=== PATIENT | female | born 2000 | race Caucasian/White ===

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

== ENCOUNTER 2018-01-25 14:22 | Emergency (ER) | payer OTHER ==
[~2018-01-25 14:22] MED LIST changes: +HEMATOGEN SOFT1 EACH PO; +IBUPROFEN800 MG PO
== END 2018-01-25 15:31 | disposition left against medical advice (07) ==
LOC: EME 14:22
DX: Z53.21 Procedure and treatment not carried out due to patient leaving prior to being seen by health care provider (principal)

== ENCOUNTER 2018-04-06 17:43 | Emergency (ER) | payer OTHER ==
[~2018-04-06] VITALS: Ht 149.9 cm; Wt 45.6 kg
[2018-04-06 19:46] VITALS: BP 107/57
== END 2018-04-06 19:46 | disposition home or self-care (01) ==
LOC: EME 17:43
DX: J02.0 Streptococcal pharyngitis (principal)
CPT/HCPCS: 87651 90; 99281; 99283; J0561